=== PATIENT | male | born 1960 | race Caucasian/White ===

== ENCOUNTER 2018-12-05 06:30 | Day surgery (SDC) | payer BC ==
[~2018-12-05 06:30] MED LIST: Metoclopramide 10 MG/2 ML SDV IV PRN
[2018-12-05] MEDS: Sodium Chloride 0.9% 1,000 ML IV SCH (07:02)
[2018-12-05] MEDS ORDERED: Propofol 1,000 MG/100 ML SDV ONE (09:00)
--- NOTE | 2018-12-05 14:28 | OR ---
DATE OF OPERATION: 12/05/2018 PREOPERATIVE DIAGNOSIS: Family history of colon cancer. POSTOPERATIVE DIAGNOSIS: Family history of colon cancer. PROCEDURE: Colonoscopy. ANESTHESIA: MAC. ESTIMATED BLOOD LOSS: None. COMPLICATIONS: None. INDICATION FOR THE PROCEDURE: The patient is a 58-year-old male, here today for colonoscopy. His father did have colon cancer at a young age. The patient's last scope was 12 years ago, which was normal per the patient. Denies any change in bowel habits since that time. DESCRIPTION OF PROCEDURE: Informed consent was obtained with the patient. The patient was taken to the operating room and placed on table in left lateral decubitus position. Monitored anesthesia care was administered. Digital rectal exam was performed and was normal. Colonoscope was then advanced through the anus and directed toward the cecum. Cecum was reached and identified by appendiceal orifice and ileocecal valve. The colonoscope was then slowly withdrawn. He did have some mild diffuse angioectasias in the proximal ascending colon, none actively bleeding, and also few small diverticula in the sigmoid and descending colon. Retroflexion performed in the rectum was also otherwise unremarkable. Colonoscope was then withdrawn. FINDINGS: Ascending colon angioectasia as well as sigmoid and descending colon diverticulosis. RECOMMENDATIONS: Would recommend repeat screening colonoscopy in 5 years due to family history. If he ever does have any bleeding, would recommend cauterization of his angioectasias. For the diverticulosis, I would recommend increase water and high-fiber diet. GEORGE/BETSY /[id number]
== END 2018-12-05 11:25 | disposition home or self-care (01) ==
LOC: LB.SDS 06:30
PROVIDERS: ATTEND Surgery
DX: Z12.11 Encounter for screening for malignant neoplasm of colon (principal); K57.30 Diverticulosis of large intestine without perforation or abscess without bleeding; K55.20 Angiodysplasia of colon without hemorrhage; I10 Essential (primary) hypertension; F17.220 Nicotine dependence, chewing tobacco, uncomplicated
CPT/HCPCS: G0121; J2704; J7030